=== PATIENT | female | born 1990 | race Two or more races ===

== ENCOUNTER 2017-09-09 21:35 | Inpatient (IN) | payer OTHER, MEDICAID ==
[~2017-09-09] VITALS: Ht 160 cm; Wt 114.1 kg
[~2017-09-09 21:35] MED LIST: BUTA1CAP28 PO; PREN-3 PO
[2017-09-09 21:40] VITALS: BP 129/79
[2017-09-09 23:08] LABS: AMNI OBC PASS; AMNISURE POSITIVE (NEGATIVE)
[2017-09-09] MEDS ORDERED: OXYTOCIN 30U/ 0.9% NaCL 500ML 500 ML IV ONE ×2 (23:10→23:14)
[2017-09-09] MEDS ORDERED: D5%-LACTATED RINGERS 1,000 ML IV SCH (23:14)
[2017-09-09] MEDS ORDERED: OXYTOCIN 30U/ 0.9% NaCL 500ML 500 ML IV PRN (23:14)
[2017-09-09] MEDS ORDERED: OXYTOCIN 30U/ 0.9% NaCL 500ML 500 ML ONE ×2 (23:24→23:35)
[2017-09-09] MEDS ORDERED: FENTANYL PF 100 MCG/2ML IV PRN (23:30)
[2017-09-09] MEDS ORDERED: TERBUTALINE 1 MG/ML, 1ML IVPush PRN (23:30)
[2017-09-09] MEDS ORDERED: CALCIUM CARBONATE 500 MG TAB.CHEW PO PRN (23:30)
[2017-09-09] MEDS ORDERED: ONDANSETRON 2MG/ML, 2ML IVPush PRN (23:30)
[2017-09-09] MEDS: LACTATED RINGERS 1,000 ML IV SCH (23:31)
[2017-09-09] MEDS ORDERED: NEWBORN KIT ONE (23:35)
[2017-09-09] MEDS ORDERED: FLU VACC QS2017-18 (36MOS+) UP/PF 0.5 ML IM-VACC ONE (23:45)
[2017-09-09 23:55] LABS: HEMOGLOBIN 13.9 g/dL (11.7-16.4); WHITE BLOOD COUNT 10.4 x10^3/uL (3.4-10)
[2017-09-10] MEDS ORDERED: FENTANYL PF 100 MCG/2ML ONE ×2 (03:28→04:59)
[2017-09-10] MEDS: FENTANYL PF 100 MCG/2ML IVPush PRN ×2 (03:30→05:01)
[2017-09-10] MEDS: LACTATED RINGERS 1,000 ML IV SCH (05:54)
[2017-09-10] MEDS ORDERED: FENTANYL/BUPIV./NS/PF 250 ML EPIDCONT ONE (06:32)
[2017-09-10] MEDS ORDERED: BUPIVACAINE 0.25% ONE (06:32)
[2017-09-10] MEDS ORDERED: LACTATED RINGERS 1,000 ML IV SCH (07:01)
[2017-09-10] MEDS ORDERED: FENTANYL/BUPIV./NS/PF 250 ML EPIDCONT SCH (07:01)
[2017-09-10] MEDS ORDERED: LACTATED RINGERS 1,000 ML IVBOLUS PRN (07:30)
[2017-09-10] MEDS: OXYTOCIN 30U/ 0.9% NaCL 500ML 500 ML IV SCH ×2 (08:08→18:08)
[2017-09-10] MEDS ORDERED: OXYcodone/APAP 5/325MG TABLET PO PRN (08:30)
[2017-09-10] MEDS ORDERED: RHOGAM FROM BLOOD BANK 1 NOTE EA IM/IV ONE (08:30)
[2017-09-10] MEDS ORDERED: OXYcodone IR 5MG TABLET PO PRN (08:30)
[2017-09-10] MEDS ORDERED: DIPH,PERTUSS(ACELL),TET VAC/PF NC IM-VACC PRN (08:30)
[2017-09-10] MEDS ORDERED: MEASLES,MUMPS&RUBELLA VACC/PF 0.5 ML SQ-VACC PRN (08:30)
[2017-09-10] MEDS ORDERED: MISOPROSTOL 200 MCG TABLET PR PRN (08:30)
[2017-09-10] MEDS ORDERED: ONDANSETRON 2MG/ML, 2ML IV PRN (08:30)
[2017-09-10] MEDS ORDERED: CALCIUM CARBONATE 500 MG TAB.CHEW PO PRN (08:30)
[2017-09-10] MEDS ORDERED: DOCUSATE 100 MG CAPSULE PO PRN (08:30)
[2017-09-10] MEDS ORDERED: MAGNESIUM HYDROXIDE 8%, 30ML UDC PO PRN (08:30)
[2017-09-10] MEDS: PRENATAL VIT/IRON/FA 1 EACH TABLET PO SCH (09:00)
[2017-09-10] MEDS ORDERED: IBUPROFEN 600 MG TABLET ONE (09:19)
[2017-09-10] MEDS: IBUPROFEN 600 MG TABLET PO PRN (09:22)
[2017-09-10 10:40] VITALS: BP 112/66
[2017-09-10 13:30] VITALS: BP 109/71
[2017-09-10 16:08] LABS: HEMATOCRIT 37.3 % (34.6-47.8); HEMOGLOBIN 12.5 g/dL (11.7-16.4); WHITE BLOOD COUNT 13.2 x10^3/uL (3.4-10)
[2017-09-10 17:00] VITALS: BP 111/74
[2017-09-10 19:10] VITALS: BP 104/58
[2017-09-11 00:05] VITALS: BP 121/78
[2017-09-11] MEDS: IBUPROFEN 600 MG TABLET PO PRN ×2 (00:45→09:09)
[2017-09-11] MEDS: OXYTOCIN 30U/ 0.9% NaCL 500ML 500 ML IV SCH ×2 (04:08→09:07)
[2017-09-11 04:13] VITALS: BP 113/76
[2017-09-11 09:00] VITALS: BP 124/77
[2017-09-11] MEDS: PRENATAL VIT/IRON/FA 1 EACH TABLET PO SCH (09:09)
[2017-09-11] MEDS ORDERED: IBUP-1222 PO (12:26)
== END 2017-09-11 18:00 | disposition home or self-care (01) | DRG 775 ==
LOC: LDOP 21:35 → LDIP 23:27 → 2NW 09-10 10:21
PROVIDERS: ADMIT Obstetrics & Gynecology; ATTEND Obstetrics & Gynecology
PROC: 10E0XZZ Delivery of Products of Conception, External Approach (ICD-10-PCS; principal; 2017-09-11)
PROC: 3E0R3BZ Introduction of Anesthetic Agent into Spinal Canal, Percutaneous Approach (ICD-10-PCS; 2017-09-11)
PROC: 00HU33Z Insertion of Infusion Device into Spinal Canal, Percutaneous Approach (ICD-10-PCS; 2017-09-11)
DX: O80 Encounter for full-term uncomplicated delivery (principal); Z37.0 Single live birth; Z3A.38 38 weeks gestation of pregnancy
CPT/HCPCS: 36415; 81001; 84112; 85025; 89060; 90686; 90715; J3010; J3490; J2590; J7120; Q0114

== ENCOUNTER 2020-08-25 22:01 | Inpatient (IN) | payer MEDICAID ==
[~2020-08-25] VITALS: Ht 160 cm; Wt 129.1 kg
[~2020-08-25 22:01] MED LIST changes: +IBUP-1222 PO
[2020-08-25 22:15] VITALS: BP 144/81
[2020-08-25 23:02] LABS: BASOPHILS % (AUTO) 1 % (0-1); EOSINOPHILS % (AUTO) 2 % (1-7); LYMPHOCYTES % (AUTO) 31 % (22-44); MEAN CORPUSCULAR HEMOGLOBIN 29.1 pg (27.0-34.8); MEAN CORPUSCULAR HGB CONC 32.3 g/dL (32.4-35.8); MEAN PLATELET VOLUME 10.3 fL (7.4-10.4); MONOCYTES % (AUTO) 8 % (2-9); NEUTROPHILS % (AUTO) 58 % (42-75); PLATELET COUNT 269 x10^3/uL (130-400); RED BLOOD COUNT 3.89 x10^6/uL (3.82-5.3); RED CELL DISTRIBUTION WIDTH 17.2 % (9.6-15.2)
[2020-08-25 23:05] LABS: ALANINE AMINOTRANSFERASE 34 U/L (12-78); ALBUMIN 2.7 g/dL (3.4-5.0); ANION GAP 9 mmol/L (5-15); CALCIUM 9.5 mg/dL (8.5-10.1); CHLORIDE 110 mmol/L (98-107); CREATININE 0.77 mg/dL (0.55-1.02)
[2020-08-25 23:07] LABS: ALKALINE PHOSPHATASE 161 U/L (45-117); BILIRUBIN,TOTAL 0.2 mg/dL (0.2-1.0); TOTAL PROTEIN 7.1 g/dL (6.4-8.2)
[2020-08-25 23:24] LABS: MD NO
[2020-08-25 23:27] LABS: MICROSCOPIC INDICATED
[2020-08-25] MEDS ORDERED: OXYTOCIN 30U/ 0.9% NaCL 500ML 500 ML ONE (23:55)
[2020-08-25] MEDS ORDERED: MISOPROSTOL 200 MCG TABLET ONE (23:55)
[2020-08-25] MEDS ORDERED: NEWBORN KIT ONE (23:55)
[2020-08-25] MEDS ORDERED: LIDOCAINE 1%, 20ML ONE (23:55)
[2020-08-26] MEDS ORDERED: OXYTOCIN 30U/ 0.9% NaCL 500ML 500 ML IV ONE
[2020-08-26] MEDS ORDERED: CALCIUM CARBONATE 500 MG TAB.CHEW PO PRN
[2020-08-26] MEDS ORDERED: TERBUTALINE 1 MG/ML, 1ML IVPush PRN
[2020-08-26] MEDS ORDERED: ONDANSETRON 2MG/ML, 2ML IVPush PRN
[2020-08-26] MEDS ORDERED: D5%-LACTATED RINGERS 1,000 ML IV SCH
[2020-08-26] MEDS ORDERED: FENTANYL PF 100 MCG/2ML IV PRN
[2020-08-26] MEDS ORDERED: FENTANYL PF 100 MCG/2ML IVPush PRN
[2020-08-26] MEDS ORDERED: OXYTOCIN 30U/ 0.9% NaCL 500ML 500 ML IV PRN
[2020-08-26] MEDS ORDERED: TERBUTALINE 1 MG/ML, 1ML SQ PRN
[2020-08-26] MEDS: LACTATED RINGERS 1,000 ML IV SCH ×2 (00:22→06:42)
[2020-08-26] MEDS ORDERED: FENTANYL PF 100 MCG/2ML ONE ×2 (07:34→08:35)
[2020-08-26] MEDS ORDERED: EPHEDRINE 50 MG/ML, 1ML IVPush PRN (08:30)
[2020-08-26] MEDS ORDERED: FENTANYL/BUPIV./NS/PF 250 ML EPIDCONT SCH (08:30)
[2020-08-26] MEDS ORDERED: LACTATED RINGERS 1,000 ML IV SCH (08:30)
[2020-08-26] MEDS ORDERED: LACTATED RINGERS 1,000 ML IVBOLUS PRN (08:30)
[2020-08-26] MEDS ORDERED: BUPIVACAINE 0.25% ONE (08:35)
[2020-08-26] MEDS ORDERED: FENTANYL/BUPIV./NS/PF 250 ML EPIDCONT ONE (08:35)
[2020-08-26] MEDS ORDERED: LACTATED RINGERS 1,000 ML INTUTE SCH (12:30)
[2020-08-26] MEDS ORDERED: LACTATED RINGERS 1,000 ML INTUTE PRN (12:30)
[2020-08-26] MEDS ORDERED: SIMETHICONE 80 MG CHEW TAB PO PRN (13:30)
[2020-08-26] MEDS ORDERED: OXYcodone IR 5MG TABLET PO PRN (13:30)
[2020-08-26] MEDS ORDERED: ONDANSETRON 2MG/ML, 2ML IV PRN (13:30)
[2020-08-26] MEDS ORDERED: CARBOPROST TROMETHAMINE 250 MCG/ML, 1ML IM PRN (13:30)
[2020-08-26] MEDS ORDERED: OXYcodone/APAP 5/325MG TABLET PO PRN (13:30)
[2020-08-26] MEDS ORDERED: IBUPROFEN 800 MG TABLET PO PRN (13:30)
[2020-08-26] MEDS ORDERED: MISOPROSTOL 200 MCG TABLET PR PRN (13:30)
[2020-08-26] MEDS ORDERED: OXYTOCIN 30U/ 0.9% NaCL 500ML 500 ML IV SCH (13:30)
[2020-08-26] MEDS ORDERED: METOCLOPRAMIDE 5 MG/ML, 2ML IV PRN (13:30)
[2020-08-26] MEDS ORDERED: ACETAMINOPHEN 325 MG TABLET PO PRN (13:30)
[2020-08-26] MEDS ORDERED: OXYTOCIN 30U/ 0.9% NaCL 500ML 500 ML ONE (14:20)
[2020-08-26 15:30] VITALS: BP 130/83
[2020-08-26 19:45] VITALS: BP 125/74
[2020-08-26] MEDS: DOCUSATE 100 MG CAPSULE PO PRN (20:38)
[2020-08-26] MEDS: IBUPROFEN 600 MG TABLET PO PRN (20:38)
[2020-08-26 21:57] LABS: MEAN CORPUSCULAR HEMOGLOBIN 28.9 pg (27.0-34.8); MEAN CORPUSCULAR HGB CONC 31.9 g/dL (32.4-35.8); MEAN PLATELET VOLUME 9.9 fL (7.4-10.4); PLATELET COUNT 263 x10^3/uL (130-400); RED BLOOD COUNT 3.82 x10^6/uL (3.82-5.3); RED CELL DISTRIBUTION WIDTH 17.4 % (9.6-15.2)
[2020-08-26 22:37] LABS: MD YES
[2020-08-26 22:38] LABS: ANISOCYTOSIS 1+; LYMPH#(MANUAL) 4.06 x10^3/uL (1-3.4); LYMPHS% (MANUAL) 32 % (22-44); MONOS#(MANUAL) 0.25 x10^3/uL (0.3-2.7); MONOS% (MANUAL) 2 % (2-9); POLYCHROMASIA 1+; SEG#(MANUAL) 8.38 x10^3/uL (1.8-6.8); SEGS% (MANUAL) 66 % (42-75)
[2020-08-26 22:39] LABS: <PLATELET ESTIMATE> ADEQUATE; <PLT MORPHOLOGY> NORMAL PLT MORPH; LARGE PLATELETS 1+
[2020-08-26 23:44] VITALS: BP 118/77
[2020-08-27 04:15] VITALS: BP 128/85
[2020-08-27] MEDS: DOCUSATE 100 MG CAPSULE PO PRN (08:40)
[2020-08-27] MEDS: PRENATAL VIT/IRON/FA 1 EACH TABLET PO SCH (08:40)
[2020-08-27 08:45] VITALS: BP 121/84
[2020-08-27 12:28] VITALS: BP 124/82
[2020-08-27] MEDS: IBUPROFEN 600 MG TABLET PO PRN (14:40)
[2020-08-27 19:55] VITALS: BP 135/80
[2020-08-28] MEDS: IBUPROFEN 600 MG TABLET PO PRN ×2 (00:41→08:03)
[2020-08-28] MEDS: DOCUSATE 100 MG CAPSULE PO PRN ×2 (00:41→08:03)
[2020-08-28] MEDS ORDERED: DOCU-131 PO (07:57)
[2020-08-28] MEDS ORDERED: IBUP-1222 PO (07:57)
[2020-08-28] MEDS: PRENATAL VIT/IRON/FA 1 EACH TABLET PO SCH (08:03)
[2020-08-28 08:30] VITALS: BP 131/81
== END 2020-08-28 11:50 | disposition home or self-care (01) | DRG 806 ==
LOC: LDOP 22:01 → LDIP 23:44 → 2NW 08-26 15:14
PROVIDERS: ADMIT Student in an Organized Health Care Education/Training Program; ATTEND Student in an Organized Health Care Education/Training Program
PROC: 10E0XZZ Delivery of Products of Conception, External Approach (ICD-10-PCS; principal; 2020-08-26)
PROC: 10907ZC Drainage of Amniotic Fluid, Therapeutic from Products of Conception, Via Natural or Artificial Opening (ICD-10-PCS; 2020-08-26)
PROC: 3E0R3BZ Introduction of Anesthetic Agent into Spinal Canal, Percutaneous Approach (ICD-10-PCS; 2020-08-26)
PROC: 00HU33Z Insertion of Infusion Device into Spinal Canal, Percutaneous Approach (ICD-10-PCS; 2020-08-26)
DX: O13.4 Gestational [pregnancy-induced] hypertension without significant proteinuria, complicating childbirth (principal); O99.354 Diseases of the nervous system complicating childbirth; Z37.0 Single live birth; G43.909 Migraine, unspecified, not intractable, without status migrainosus; Z20.828 Contact with and (suspected) exposure to other viral communicable diseases; Z3A.37 37 weeks gestation of pregnancy; Z80.3 Family history of malignant neoplasm of breast; Z83.3 Family history of diabetes mellitus
CPT/HCPCS: 36415; 80053; 81001; 82570; 84156; 84550; 85025; 86592; 86850; 86900; 87635; G0378; J3010; J2590; J7120